=== PATIENT | female | born 1950 | race Caucasian/White ===

== ENCOUNTER 2022-12-22 17:43 | Inpatient (IN) | payer MEDICARE ==
[~2022-12-22] VITALS: Ht 160 cm; Wt 90.7 kg
[~2022-12-22 17:43] MED LIST: ONDANSETRON HCL INJ 2MG/ML 2ML 2 MG/ML VIAL ONE; POVIDONE IODINE 0.05% 0.05 % ML PO ONE; SEVOFLURANE INHAL SOLN 250 ML PEN BTL ONE
[2022-12-22 18:54] LABS: BASOPHILS # (AUTO) 0.1 (0.0-0.1); BASOPHILS % 0.5 % (0.0-1.0); EOSINOPHILS # (AUTO) 0.7 (0.0-0.4); EOSINOPHILS % 7.6 % (0.0-6.0); HEMATOCRIT 39.2 % (34.2-44.1); HEMOGLOBIN 12.3 g/dL (12.0-16.0); LYMPHOCYTES # (AUTO) 0.8 (1.0-3.2); LYMPHOCYTES % 8.3 % (18.0-39.1); MEAN CORPUSCULAR HEMOGLOBIN 30.1 pg (28-32); MEAN CORPUSCULAR HGB CONC 31.4 g/dL (31-35); MEAN CORPUSCULAR VOLUME 96.1 fL (81-99); MONOCYTES # (AUTO) 0.9 (0.2-0.8); MONOCYTES % 9.1 % (4.4-11.3); NEUTROPHILS # (AUTO) 7.2 (2.1-6.9); NEUTROPHILS % 74.2 % (38.7-80.0); PLATELET COUNT 229 x10e3/uL (140-360); RED BLOOD COUNT 4.08 x10e6/uL (3.6-5.1); RED CELL DISTRIBUTION WIDTH 14.8 % (11.7-14.4)
[2022-12-22 19:04] LABS: AMPHETAMINES SCREEN,URINE NEGATIVE (NEGATIVE); BENZODIAZEPINES SCREEN,URINE NEGATIVE (NEGATIVE); PHENCYCLIDINE SCREEN,URINE NEGATIVE (NEGATIVE)
[2022-12-22 19:17] LABS: ALBUMIN 3.7 g/dL (3.5-5.0); ALBUMIN/GLOBULIN RATIO 0.7 (0.8-2.0); ANION GAP 23.2 mmol/L (8-16); CALCIUM 9.3 mg/dL (8.4-10.2); CREATININE, SERUM 12.46 mg/dL (0.57-1.11); POTASSIUM 5.2 mmol/L (3.5-5.1)
[2022-12-22] MEDS ORDERED: FUROSEMIDE INJ 10 MG/ML 4 ML VIAL IV STA (19:28)
[2022-12-22] MEDS ORDERED: SODIUM BICARBONATE 8.4% INJ 50 ML SYR IV STA (19:59)
[2022-12-22] MEDS ORDERED: CALCIUM GLUCONATE 10% INJ 0.465 MEQ/ML VIAL IV STA (19:59)
[2022-12-22] MEDS ORDERED: DEXTROSE 50% SYRINGE 50 ML IV STA (19:59)
[2022-12-22] MEDS ORDERED: INSULIN REGULAR, HUMAN 100 UNIT/1 ML IV ONE (20:00)
[2022-12-22 20:28] VITALS: PULSE 99; RESP 20; O2SAT 100
[2022-12-22] MEDS ORDERED: CALCIUM GLUC 1 G/50 ML NACL 50 ML IV ONE (20:28)
[2022-12-22 22:02] VITALS: BP 149/75; PULSE 74; RESP 18; TEMP 98.1; O2SAT 96
[2022-12-23] VITALS (9 sets, daily range): BP systolic 104–160; BP diastolic 61–83; PULSE 72–96; RESP 16–22; TEMP 97.1–98.3; O2SAT 96–98
[2022-12-23] MEDS: Morphine 4mg INJECTION 4 MG/ML INJ IV PRN (01:00)
[2022-12-23] MEDS: ONDANSETRON HCL INJ 2MG/ML 2ML 2 MG/ML VIAL IV PRN ×2 (01:00→05:20)
[2022-12-23] MEDS ORDERED: SODIUM CHLORIDE 0.9% 250ML 250 ML ONE (04:20)
[2022-12-23 07:16] LABS: BASOPHILS # (AUTO) 0.1 (0.0-0.1); BASOPHILS % 0.6 % (0.0-1.0); EOSINOPHILS # (AUTO) 0.8 (0.0-0.4); EOSINOPHILS % 8.9 % (0.0-6.0); HEMATOCRIT 35.5 % (34.2-44.1); HEMOGLOBIN 10.8 g/dL (12.0-16.0); LYMPHOCYTES # (AUTO) 0.9 (1.0-3.2); LYMPHOCYTES % 9.7 % (18.0-39.1); MEAN CORPUSCULAR HEMOGLOBIN 29.8 pg (28-32); MEAN CORPUSCULAR HGB CONC 30.4 g/dL (31-35); MEAN CORPUSCULAR VOLUME 98.1 fL (81-99); MONOCYTES # (AUTO) 0.9 (0.2-0.8); MONOCYTES % 10.2 % (4.4-11.3); NEUTROPHILS # (AUTO) 6.3 (2.1-6.9); NEUTROPHILS % 70.2 % (38.7-80.0); PLATELET COUNT 200 x10e3/uL (140-360); RED BLOOD COUNT 3.62 x10e6/uL (3.6-5.1); RED CELL DISTRIBUTION WIDTH 14.9 % (11.7-14.4)
[2022-12-23 07:36] LABS: ALBUMIN 3.2 g/dL (3.5-5.0); ALBUMIN/GLOBULIN RATIO 0.7 (0.8-2.0); ANION GAP 20.4 mmol/L (8-16); POTASSIUM 5.4 mmol/L (3.5-5.1)
[2022-12-23] MEDS ORDERED: FUROSEMIDE INJ 10 MG/ML 4 ML VIAL IV SCH (08:15)
[2022-12-23] MEDS ORDERED: PROMETHAZINE 12.5MG/ NACL 0.9% 12.5 MG/50 ML BAG IV PRN (08:15)
[2022-12-23] MEDS ORDERED: HYDRALAZINE HCL 20 MG/ML VIAL IV PRN (08:15)
[2022-12-23] MEDS: HEPARIN SOD (PORCINE) 5,000 UNIT/ML VIAL SC SCH ×2 (09:51→22:47)
[2022-12-23] MEDS: FUROSEMIDE INJ 10 MG/ML 4 ML VIAL IV SCH ×2 (16:51→22:41)
[2022-12-23] MEDS: NYSTATIN 15 GM POWDER UD BTL TOP SCH (16:51)
[2022-12-23] MEDS ORDERED: SOD POLYSTYRENE SULFONATE SUSP 15 GM/60 ML BTL PO ONE (18:00)
[2022-12-23] MEDS: SODIUM BICARBONATE 650 MG TAB PO SCH (18:37)
[2022-12-23 21:27] LABS: CLARITY,URINE HAZY (CLEAR); COLOR,URINE YELLOW (YELLOW); KETONES,URINE NEGATIVE (NEGATIVE); LEUKOCYTE ESTERASE ,URINE MODERATE (NEGATIVE); NITRITE,URINE NEGATIVE (NEGATIVE); PROTEIN,URINE DIPSTICK 2+ (NEGATIVE)
[2022-12-23 21:28] LABS: URINE UROBILINOGEN 0.2 mg/dL (0.2 - 1)
[2022-12-23 21:39] LABS: BACTERIA,URINE MODERATE /HPF; EPITHELIAL CELLS,URINE FEW /LPF; WBC,URINE (MAN) 21-50 /HPF (0-5)
[2022-12-24] VITALS (8 sets, daily range): BP systolic 127–180; BP diastolic 67–98; PULSE 77–102; RESP 18–21; TEMP 97.7–98.5; O2SAT 95–99
[2022-12-24 04:58] LABS: BASOPHILS % 0.6 % (0.0-1.0); EOSINOPHILS # (AUTO) 0.5 (0.0-0.4); EOSINOPHILS % 6.6 % (0.0-6.0); HEMATOCRIT 31.3 % (34.2-44.1); HEMOGLOBIN 9.7 g/dL (12.0-16.0); LYMPHOCYTES # (AUTO) 0.5 (1.0-3.2); LYMPHOCYTES % 7.4 % (18.0-39.1); MEAN CORPUSCULAR HEMOGLOBIN 29.9 pg (28-32); MEAN CORPUSCULAR VOLUME 96.6 fL (81-99); MONOCYTES # (AUTO) 0.7 (0.2-0.8); MONOCYTES % 9.7 % (4.4-11.3); NEUTROPHILS # (AUTO) 5.5 (2.1-6.9); NEUTROPHILS % 75.3 % (38.7-80.0); PLATELET COUNT 159 x10e3/uL (140-360); RED BLOOD COUNT 3.24 x10e6/uL (3.6-5.1); RED CELL DISTRIBUTION WIDTH 14.9 % (11.7-14.4)
[2022-12-24 05:26] LABS: ANION GAP 19.9 mmol/L (8-16); CALCIUM 8.6 mg/dL (8.4-10.2); CREATININE, SERUM 13.16 mg/dL (0.57-1.11); POTASSIUM 4.9 mmol/L (3.5-5.1)
[2022-12-24] MEDS: FUROSEMIDE INJ 10 MG/ML 4 ML VIAL IV SCH ×3 (05:27→21:07)
[2022-12-24 05:55] LABS: MAGNESIUM 1.5 MG/DL (1.3-2.1); PHOSPHORUS 8.5 MG/DL (2.3-4.7)
[2022-12-24 06:10] LABS: THYROID STIMULATING HORMONE 1.106 uIU/mL (0.350-4.940)
[2022-12-24] MEDS: SODIUM BICARBONATE 650 MG TAB PO SCH ×2 (09:04→17:14)
[2022-12-24] MEDS: METOPROLOL TARTRATE 25 MG TAB PO SCH (09:06)
[2022-12-24] MEDS: MUPIROCIN 2% OINT 22 GM TUBE TOP SCH (09:07)
[2022-12-24] MEDS: NYSTATIN 15 GM POWDER UD BTL TOP SCH ×2 (09:07→17:15)
[2022-12-24] MEDS: HEPARIN SOD (PORCINE) 5,000 UNIT/ML VIAL SC SCH ×2 (09:32→20:09)
[2022-12-24 10:33] LABS: INR 1.14; PROTHROMBIN TIME 15.1 seconds (11.9-14.5)
[2022-12-24] MEDS: Morphine 4mg INJECTION 4 MG/ML INJ IV PRN (12:25)
[2022-12-24] MEDS ORDERED: IOPAMIDOL 370 MG/ML 100 ML INFUS..BTL INJ ONE (13:45)
[2022-12-24] MEDS ORDERED: LIDOCAINE HCL 1% LOCAL INJ 20 ML VIAL ONE (13:45)
[2022-12-24] MEDS ORDERED: SODIUM CHLORIDE 0.9% 500ML 0 ML ONE (13:46)
[2022-12-24] MEDS ORDERED: MAGNESIUM SULFATE 2GM/50ML 100 ML IV ONE (17:00)
[2022-12-24] MEDS ORDERED: MAGNESIUM SULFATE 2GM/50ML 50 ML IV ONE (17:45)
[2022-12-24] MEDS ORDERED: MAGNESIUM SULF 1GRAM/DEXTROSE 100 ML IV ONE (20:00)
[2022-12-25] VITALS (8 sets, daily range): BP systolic 120–162; BP diastolic 54–86; PULSE 83–91; RESP 19–24; TEMP 97.4–98.6; O2SAT 95–100
[2022-12-25] MEDS: FUROSEMIDE INJ 10 MG/ML 4 ML VIAL IV SCH ×3 (05:02→21:37)
[2022-12-25 06:09] LABS: ANION GAP 25.4 mmol/L (8-16); CREATININE, SERUM 13.87 mg/dL (0.57-1.11); MAGNESIUM 2.6 MG/DL (1.3-2.1); POTASSIUM 5.4 mmol/L (3.5-5.1)
[2022-12-25] MEDS ORDERED: LIDOCAINE HCL 1% LOCAL INJ 20 ML VIAL ONE (07:13)
[2022-12-25] MEDS ORDERED: SODIUM CHLORIDE 0.9% 250ML 250 ML ONE ×2 (07:13→09:20)
[2022-12-25] MEDS ORDERED: IOPAMIDOL 370 MG/ML 100 ML INFUS..BTL INJ ONE (07:13)
[2022-12-25] MEDS: METOPROLOL TARTRATE 25 MG TAB PO SCH (08:24)
[2022-12-25] MEDS: SODIUM BICARBONATE 650 MG TAB PO SCH ×2 (08:24→16:28)
[2022-12-25] MEDS: HEPARIN SOD (PORCINE) 5,000 UNIT/ML VIAL SC SCH ×2 (08:24→21:52)
[2022-12-25] MEDS: NYSTATIN 15 GM POWDER UD BTL TOP SCH ×2 (08:24→16:29)
[2022-12-25] MEDS: MUPIROCIN 2% OINT 22 GM TUBE TOP SCH (08:24)
[2022-12-25] MEDS ORDERED: CEFTRIAXONE 1 GM VIAL ONE (09:20)
[2022-12-25] MEDS ORDERED: FENTANYL CITRATE/PF 100MCG/2 ML INJ ONE (09:20)
[2022-12-25] MEDS ORDERED: MIDAZOLAM HCL 2 MG/2 ML VIAL ONE (09:20)
[2022-12-25 17:35] LABS: CREATININE,URINE RANDOM 61.34 mg/dL (47-110); TOTAL PROTEIN, URINE 65.5 mg/dL (1-14)
[2022-12-25] MEDS ORDERED: SOD POLYSTYRENE SULFONATE SUSP 15 GM/60 ML BTL PO ONE (19:05)
[2022-12-26] VITALS (8 sets, daily range): BP systolic 125–157; BP diastolic 63–87; PULSE 84–92; RESP 16–20; TEMP 97.2–99.2; O2SAT 94–100
[2022-12-26] MEDS: FUROSEMIDE INJ 10 MG/ML 4 ML VIAL IV SCH ×3 (06:12→21:16)
[2022-12-26 06:20] LABS: CALCIUM 8.5 mg/dL (8.4-10.2); CREATININE, SERUM 12.53 mg/dL (0.57-1.11)
[2022-12-26] MEDS: HEPARIN SOD (PORCINE) 5,000 UNIT/ML VIAL SC SCH (09:00)
[2022-12-26] MEDS: METOPROLOL TARTRATE 25 MG TAB PO SCH (09:34)
[2022-12-26] MEDS: SODIUM BICARBONATE 650 MG TAB PO SCH ×2 (09:35→17:22)
[2022-12-26] MEDS: MUPIROCIN 2% OINT 22 GM TUBE TOP SCH (09:35)
[2022-12-26] MEDS: NYSTATIN 15 GM POWDER UD BTL TOP SCH ×2 (09:35→17:22)
[2022-12-26] MEDS ORDERED: ONDANSETRON HCL 4 MG ORAL DISINTEGRATING TAB PO PRN (10:30)
[2022-12-27] VITALS (7 sets, daily range): BP systolic 121–146; BP diastolic 58–82; PULSE 82–97; RESP 16–20; TEMP 97–98.6; O2SAT 94–100
[2022-12-27 06:05] LABS: ANION GAP 23.4 mmol/L (8-16); CALCIUM 8.4 mg/dL (8.4-10.2); CREATININE, SERUM 10.65 mg/dL (0.57-1.11); MAGNESIUM 1.9 MG/DL (1.3-2.1); POTASSIUM 3.4 mmol/L (3.5-5.1)
[2022-12-27] MEDS: FUROSEMIDE INJ 10 MG/ML 4 ML VIAL IV SCH ×2 (06:09→13:59)
[2022-12-27] MEDS: SODIUM BICARBONATE 650 MG TAB PO SCH ×2 (09:52→17:06)
[2022-12-27] MEDS: PANTOPRAZOLE SOD 40 MG TABEC PO SCH (09:52)
[2022-12-27] MEDS: METOPROLOL TARTRATE 25 MG TAB PO SCH (09:53)
[2022-12-27] MEDS: NYSTATIN 15 GM POWDER UD BTL TOP SCH ×2 (09:54→17:00)
[2022-12-27] MEDS: MUPIROCIN 2% OINT 22 GM TUBE TOP SCH (09:54)
[2022-12-27] MEDS: Morphine 4mg INJECTION 4 MG/ML INJ IV PRN (13:59)
[2022-12-27 15:14] LABS: ALPHA 2 GLOBULIN URINE PEP 6.8 % (.)
[2022-12-27] MEDS ORDERED: POTASSIUM CHLORIDE 20 MEQ TAB CR PO ONE (18:35)
[2022-12-27] MEDS: FUROSEMIDE 40 MG TAB PO SCH (20:27)
[2022-12-28 00:06] VITALS: BP 131/69; PULSE 84; RESP 18; TEMP 98; O2SAT 94
[2022-12-28 05:06] VITALS: BP 137/66; PULSE 80; RESP 18; TEMP 97.8; O2SAT 95
[2022-12-28 08:05] LABS: ANION GAP 21.9 mmol/L (8-16); CALCIUM 8.2 mg/dL (8.4-10.2); CREATININE, SERUM 8.31 mg/dL (0.57-1.11)
[2022-12-28 08:29] LABS: POTASSIUM 2.9 mmol/L (3.5-5.1)
[2022-12-28 08:54] VITALS: BP 149/77; PULSE 89; RESP 16; TEMP 98.2; O2SAT 97
[2022-12-28] MEDS: SODIUM BICARBONATE 650 MG TAB PO SCH (09:47)
[2022-12-28] MEDS: PANTOPRAZOLE SOD 40 MG TABEC PO SCH (09:48)
[2022-12-28] MEDS: METOPROLOL TARTRATE 25 MG TAB PO SCH (09:48)
[2022-12-28] MEDS: FUROSEMIDE 40 MG TAB PO SCH ×2 (09:48→17:27)
[2022-12-28] MEDS: POTASSIUM CHLORIDE 20 MEQ TAB CR PO SCH (09:48)
[2022-12-28] MEDS: MUPIROCIN 2% OINT 22 GM TUBE TOP SCH (09:50)
[2022-12-28] MEDS: NYSTATIN 15 GM POWDER UD BTL TOP SCH ×2 (09:50→17:26)
[2022-12-28] MEDS ORDERED: POTASSIUM CHLORIDE 10MEQ EA PO ONE (11:00)
[2022-12-28 12:48] VITALS: BP 142/67; PULSE 82; RESP 19; TEMP 97.7; O2SAT 98
[2022-12-28 17:16] VITALS: BP 147/72; PULSE 84; RESP 21; TEMP 97.6; O2SAT 96
[2022-12-28 20:00] VITALS: BP 127/62; PULSE 84; RESP 17; TEMP 97.4; O2SAT 94
[2022-12-28] MEDS: ACETAMINOPHEN 325 MG TAB PO PRN (22:45)
[2022-12-29] VITALS (7 sets, daily range): BP systolic 131–155; BP diastolic 60–85; PULSE 81–91; RESP 16–22; TEMP 97.5–98.4; O2SAT 94–98
[2022-12-29 06:02] LABS: BASOPHILS # (AUTO) 0.1 (0.0-0.1); BASOPHILS % 0.5 % (0.0-1.0); EOSINOPHILS # (AUTO) 0.6 (0.0-0.4); EOSINOPHILS % 5.4 % (0.0-6.0); HEMATOCRIT 32.9 % (34.2-44.1); HEMOGLOBIN 10.5 g/dL (12.0-16.0); LYMPHOCYTES # (AUTO) 0.8 (1.0-3.2); MEAN CORPUSCULAR HEMOGLOBIN 29.9 pg (28-32); MEAN CORPUSCULAR HGB CONC 31.9 g/dL (31-35); MEAN CORPUSCULAR VOLUME 93.7 fL (81-99); MONOCYTES # (AUTO) 1.1 (0.2-0.8); MONOCYTES % 10.7 % (4.4-11.3); NEUTROPHILS # (AUTO) 7.8 (2.1-6.9); NEUTROPHILS % 74.9 % (38.7-80.0); PLATELET COUNT 188 x10e3/uL (140-360); RED BLOOD COUNT 3.51 x10e6/uL (3.6-5.1); RED CELL DISTRIBUTION WIDTH 15.1 % (11.7-14.4)
[2022-12-29 06:27] LABS: ANION GAP 19.7 mmol/L (8-16); CALCIUM 7.9 mg/dL (8.4-10.2); CREATININE, SERUM 6.5 mg/dL (0.57-1.11)
[2022-12-29 06:39] LABS: POTASSIUM 2.7 mmol/L (3.5-5.1)
[2022-12-29 06:59] LABS: MAGNESIUM 1.3 MG/DL (1.3-2.1)
[2022-12-29] MEDS: PANTOPRAZOLE SOD 40 MG TABEC PO SCH (08:15)
[2022-12-29] MEDS: NYSTATIN 15 GM POWDER UD BTL TOP SCH ×2 (09:00→15:56)
[2022-12-29] MEDS: FUROSEMIDE 40 MG TAB PO SCH ×2 (09:14→16:14)
[2022-12-29] MEDS: SODIUM BICARBONATE 650 MG TAB PO SCH (09:14)
[2022-12-29] MEDS: POTASSIUM CHLORIDE 20 MEQ TAB CR PO SCH ×3 (09:14→21:12)
[2022-12-29] MEDS: MUPIROCIN 2% OINT 22 GM TUBE TOP SCH (09:15)
[2022-12-29] MEDS: METOPROLOL TARTRATE 25 MG TAB PO SCH (09:15)
[2022-12-29] MEDS ORDERED: SODIUM CHLORIDE 0.9% 250ML 250 ML ONE (14:27)
[2022-12-29] MEDS ORDERED: MAGNESIUM SULFATE 2GM/50ML 50 ML IV ONE (14:30)
[2022-12-30] VITALS (7 sets, daily range): BP systolic 125–149; BP diastolic 59–88; PULSE 80–89; RESP 17–20; TEMP 97.5–99.3; O2SAT 95–100
[2022-12-30] MEDS ORDERED: POTASSIUM CHLORIDE 20 MEQ TAB CR PO SCH (05:00)
[2022-12-30 05:58] LABS: BASOPHILS # (AUTO) 0.1 (0.0-0.1); BASOPHILS % 0.5 % (0.0-1.0); EOSINOPHILS # (AUTO) 0.5 (0.0-0.4); EOSINOPHILS % 5.5 % (0.0-6.0); HEMATOCRIT 32.4 % (34.2-44.1); HEMOGLOBIN 10.2 g/dL (12.0-16.0); LYMPHOCYTES # (AUTO) 0.9 (1.0-3.2); LYMPHOCYTES % 9.3 % (18.0-39.1); MEAN CORPUSCULAR HEMOGLOBIN 29.9 pg (28-32); MEAN CORPUSCULAR HGB CONC 31.5 g/dL (31-35); MONOCYTES % 9.8 % (4.4-11.3); NEUTROPHILS # (AUTO) 7.3 (2.1-6.9); NEUTROPHILS % 74.5 % (38.7-80.0); PLATELET COUNT 171 x10e3/uL (140-360); RED BLOOD COUNT 3.41 x10e6/uL (3.6-5.1); RED CELL DISTRIBUTION WIDTH 15.3 % (11.7-14.4)
[2022-12-30] MEDS: PANTOPRAZOLE SOD 40 MG TABEC PO SCH (08:30)
[2022-12-30] MEDS: NYSTATIN 15 GM POWDER UD BTL TOP SCH (09:00)
[2022-12-30] MEDS: POTASSIUM CHLORIDE 20 MEQ TAB CR PO SCH ×3 (09:53→20:12)
[2022-12-30] MEDS: SODIUM BICARBONATE 650 MG TAB PO SCH (09:54)
[2022-12-30] MEDS: FUROSEMIDE 40 MG TAB PO SCH ×2 (09:54→16:37)
[2022-12-30] MEDS: METOPROLOL TARTRATE 25 MG TAB PO SCH (09:54)
[2022-12-30] MEDS: MAGNESIUM OXIDE 400 MG TAB PO SCH ×2 (09:54→16:37)
[2022-12-30] MEDS: MUPIROCIN 2% OINT 22 GM TUBE TOP SCH (09:55)
[2022-12-30 10:17] LABS: ANION GAP 18.8 mmol/L (8-16); CALCIUM 7.9 mg/dL (8.4-10.2); CREATININE, SERUM 4.85 mg/dL (0.57-1.11)
[2022-12-30 10:20] LABS: POTASSIUM 2.8 mmol/L (3.5-5.1)
[2022-12-30] MEDS: POTASSIUM CHLORIDE 20MEQ/100ML 100 ML IV SCH ×2 (10:30→13:52)
[2022-12-30] MEDS: ACETAMINOPHEN 325 MG TAB PO PRN (20:12)
[2022-12-31] VITALS (8 sets, daily range): BP systolic 130–146; BP diastolic 64–79; PULSE 83–94; RESP 17–20; TEMP 97–99; O2SAT 95–98
[2022-12-31] MEDS: ACETAMINOPHEN 325 MG TAB PO PRN ×2 (02:28→20:56)
[2022-12-31 06:02] LABS: BASOPHILS # (AUTO) 0.1 (0.0-0.1); BASOPHILS % 0.6 % (0.0-1.0); EOSINOPHILS # (AUTO) 0.5 (0.0-0.4); EOSINOPHILS % 6.8 % (0.0-6.0); HEMATOCRIT 32.6 % (34.2-44.1); HEMOGLOBIN 10.2 g/dL (12.0-16.0); LYMPHOCYTES # (AUTO) 0.7 (1.0-3.2); LYMPHOCYTES % 9.1 % (18.0-39.1); MEAN CORPUSCULAR HEMOGLOBIN 29.8 pg (28-32); MEAN CORPUSCULAR HGB CONC 31.3 g/dL (31-35); MEAN CORPUSCULAR VOLUME 95.3 fL (81-99); MONOCYTES # (AUTO) 0.8 (0.2-0.8); MONOCYTES % 9.6 % (4.4-11.3); NEUTROPHILS # (AUTO) 5.8 (2.1-6.9); NEUTROPHILS % 73.5 % (38.7-80.0); PLATELET COUNT 172 x10e3/uL (140-360); RED BLOOD COUNT 3.42 x10e6/uL (3.6-5.1); RED CELL DISTRIBUTION WIDTH 15.5 % (11.7-14.4)
[2022-12-31 06:32] LABS: MAGNESIUM 1.5 MG/DL (1.3-2.1)
[2022-12-31 06:52] LABS: PHOSPHORUS 4.2 MG/DL (2.3-4.7)
[2022-12-31 06:58] LABS: CALCIUM 8.2 mg/dL (8.4-10.2); CREATININE, SERUM 3.86 mg/dL (0.57-1.11)
[2022-12-31] MEDS: PANTOPRAZOLE SOD 40 MG TABEC PO SCH (08:30)
[2022-12-31] MEDS ORDERED: POTASSIUM CHLORIDE 10MEQ EA PO ONE (09:30)
[2022-12-31] MEDS: SODIUM BICARBONATE 650 MG TAB PO SCH (09:36)
[2022-12-31] MEDS: POTASSIUM CHLORIDE 20 MEQ TAB CR PO SCH ×3 (09:37→20:45)
[2022-12-31] MEDS: METOPROLOL TARTRATE 25 MG TAB PO SCH (09:37)
[2022-12-31] MEDS: MAGNESIUM OXIDE 400 MG TAB PO SCH ×2 (09:38→16:11)
[2022-12-31] MEDS: FUROSEMIDE 40 MG TAB PO SCH ×2 (09:39→16:11)
[2022-12-31] MEDS: MAGNESIUM SULFATE 2GM/50ML 50 ML IV SCH ×2 (09:41→12:31)
[2022-12-31] MEDS ORDERED: MAGNESIUM SULFATE 2GM/50ML IV SCH (10:00)
[2023-01-01] VITALS (8 sets, daily range): BP systolic 123–145; BP diastolic 61–79; PULSE 79–106; RESP 16–22; TEMP 97.4–99.4; O2SAT 97–98
[2023-01-01 06:10] LABS: BASOPHILS # (AUTO) 0.1 (0.0-0.1); BASOPHILS % 0.6 % (0.0-1.0); EOSINOPHILS # (AUTO) 0.6 (0.0-0.4); EOSINOPHILS % 7.6 % (0.0-6.0); HEMATOCRIT 35.3 % (34.2-44.1); HEMOGLOBIN 10.7 g/dL (12.0-16.0); LYMPHOCYTES # (AUTO) 1.1 (1.0-3.2); LYMPHOCYTES % 13.2 % (18.0-39.1); MEAN CORPUSCULAR HEMOGLOBIN 29.5 pg (28-32); MEAN CORPUSCULAR HGB CONC 30.3 g/dL (31-35); MEAN CORPUSCULAR VOLUME 97.2 fL (81-99); MONOCYTES # (AUTO) 1.2 (0.2-0.8); MONOCYTES % 14.6 % (4.4-11.3); NEUTROPHILS # (AUTO) 5.3 (2.1-6.9); NEUTROPHILS % 63.6 % (38.7-80.0); PLATELET COUNT 217 x10e3/uL (140-360); RED BLOOD COUNT 3.63 x10e6/uL (3.6-5.1); RED CELL DISTRIBUTION WIDTH 15.2 % (11.7-14.4)
[2023-01-01 06:25] LABS: ANION GAP 18.2 mmol/L (8-16); CALCIUM 9.2 mg/dL (8.4-10.2); CREATININE, SERUM 3.11 mg/dL (0.57-1.11); POTASSIUM 4.2 mmol/L (3.5-5.1)
[2023-01-01] MEDS: PANTOPRAZOLE SOD 40 MG TABEC PO SCH (07:30)
[2023-01-01] MEDS: MAGNESIUM OXIDE 400 MG TAB PO SCH ×2 (09:00→17:02)
[2023-01-01] MEDS: SODIUM BICARBONATE 650 MG TAB PO SCH (09:00)
[2023-01-01] MEDS: METOPROLOL TARTRATE 25 MG TAB PO SCH (09:00)
[2023-01-01] MEDS: POTASSIUM CHLORIDE 20 MEQ TAB CR PO SCH ×3 (09:00→21:22)
[2023-01-01] MEDS: FUROSEMIDE 40 MG TAB PO SCH ×2 (09:00→17:02)
[2023-01-01] MEDS ORDERED: IOPAMIDOL 610MG/1ML 300 MG/ML VIAL IV ONE (12:12)
[2023-01-01] MEDS ORDERED: DEXAMETHASONE SOD PHOS 10 MG/1 ML VIAL ONE (13:35)
[2023-01-01] MEDS ORDERED: FENTANYL CITRATE/PF 100MCG/2 ML INJ ONE ×2 (13:50→13:56)
[2023-01-01] MEDS: FENTANYL CITRATE/PF 100MCG/2 ML INJ ONE ×4 (14:15→14:30)
[2023-01-01] MEDS ORDERED: HYDRALAZINE HCL 20 MG/ML VIAL ONE (14:30)
[2023-01-01] MEDS ORDERED: HYDROMORPHONE 1MG/1ML INJ ONE (14:39)
[2023-01-01] MEDS: ACETAMINOPHEN 325 MG TAB PO PRN (17:01)
[2023-01-02] VITALS (8 sets, daily range): BP systolic 124–138; BP diastolic 62–68; PULSE 84–93; RESP 18–20; TEMP 98.1–99.5; O2SAT 94–98
[2023-01-02] MEDS: ACETAMINOPHEN 325 MG TAB PO PRN ×3 (00:42→12:40)
[2023-01-02 05:46] LABS: BASOPHILS % 0.2 % (0.0-1.0); HEMATOCRIT 34.6 % (34.2-44.1); HEMOGLOBIN 10.6 g/dL (12.0-16.0); LYMPHOCYTES # (AUTO) 0.6 (1.0-3.2); LYMPHOCYTES % 5.8 % (18.0-39.1); MEAN CORPUSCULAR HEMOGLOBIN 29.9 pg (28-32); MEAN CORPUSCULAR HGB CONC 30.6 g/dL (31-35); MEAN CORPUSCULAR VOLUME 97.5 fL (81-99); MONOCYTES # (AUTO) 0.3 (0.2-0.8); MONOCYTES % 2.9 % (4.4-11.3); NEUTROPHILS # (AUTO) 9.1 (2.1-6.9); NEUTROPHILS % 90.6 % (38.7-80.0); PLATELET COUNT 223 x10e3/uL (140-360); RED BLOOD COUNT 3.55 x10e6/uL (3.6-5.1); RED CELL DISTRIBUTION WIDTH 15.1 % (11.7-14.4)
[2023-01-02 06:12] LABS: ANION GAP 18.6 mmol/L (8-16); CALCIUM 9.4 mg/dL (8.4-10.2); CREATININE, SERUM 3.39 mg/dL (0.57-1.11); POTASSIUM 5.6 mmol/L (3.5-5.1)
[2023-01-02] MEDS: PANTOPRAZOLE SOD 40 MG TABEC PO SCH (08:30)
[2023-01-02] MEDS: SODIUM BICARBONATE 650 MG TAB PO SCH (09:08)
[2023-01-02] MEDS: FUROSEMIDE 40 MG TAB PO SCH ×2 (09:08→17:21)
[2023-01-02] MEDS: MAGNESIUM OXIDE 400 MG TAB PO SCH ×2 (09:08→17:21)
[2023-01-02] MEDS: METOPROLOL TARTRATE 25 MG TAB PO SCH (09:09)
[2023-01-02] MEDS: PHENAZOPYRIDINE HCL 100 MG TAB PO PRN ×2 (12:40→17:21)
[2023-01-02] MEDS ORDERED: SODIUM CHLORIDE 0.9% 1000ML 1,000 ML IV SCH (18:30)
[2023-01-02] MEDS: SODIUM CHLORIDE 0.9% 1000ML 1,000 ML IV SCH (21:39)
[2023-01-03] VITALS (7 sets, daily range): BP systolic 113–144; BP diastolic 61–81; PULSE 85–91; RESP 18–24; TEMP 97.5–98.9; O2SAT 95–98
[2023-01-03] MEDS: PHENAZOPYRIDINE HCL 100 MG TAB PO PRN ×3 (00:04→20:26)
[2023-01-03] MEDS: ACETAMINOPHEN 325 MG TAB PO PRN ×4 (00:04→19:46)
[2023-01-03 05:46] LABS: BASOPHILS # (AUTO) 0.1 (0.0-0.1); BASOPHILS % 0.3 % (0.0-1.0); EOSINOPHILS # (AUTO) 0.1 (0.0-0.4); EOSINOPHILS % 0.9 % (0.0-6.0); HEMATOCRIT 35.2 % (34.2-44.1); HEMOGLOBIN 10.9 g/dL (12.0-16.0); LYMPHOCYTES # (AUTO) 1.2 (1.0-3.2); LYMPHOCYTES % 8.5 % (18.0-39.1); MONOCYTES # (AUTO) 1.3 (0.2-0.8); MONOCYTES % 9.1 % (4.4-11.3); NEUTROPHILS # (AUTO) 11.7 (2.1-6.9); NEUTROPHILS % 80.8 % (38.7-80.0); PLATELET COUNT 250 x10e3/uL (140-360); RED BLOOD COUNT 3.63 x10e6/uL (3.6-5.1); RED CELL DISTRIBUTION WIDTH 15.3 % (11.7-14.4)
[2023-01-03] MEDS: SODIUM CHLORIDE 0.9% 1000ML 1,000 ML IV SCH ×2 (05:58→16:00)
[2023-01-03 06:08] LABS: ANION GAP 16.8 mmol/L (8-16); CALCIUM 9.2 mg/dL (8.4-10.2); CREATININE, SERUM 2.74 mg/dL (0.57-1.11); POTASSIUM 4.8 mmol/L (3.5-5.1)
[2023-01-03] MEDS: PANTOPRAZOLE SOD 40 MG TABEC PO SCH (08:30)
[2023-01-03] MEDS: MAGNESIUM OXIDE 400 MG TAB PO SCH ×2 (09:28→17:26)
[2023-01-03] MEDS: SODIUM BICARBONATE 650 MG TAB PO SCH (09:28)
[2023-01-03] MEDS: METOPROLOL TARTRATE 25 MG TAB PO SCH (09:29)
[2023-01-04] VITALS (7 sets, daily range): BP systolic 130–144; BP diastolic 71–84; PULSE 86–110; RESP 18–20; TEMP 97.9–98.6; O2SAT 95–97
[2023-01-04] MEDS: PHENAZOPYRIDINE HCL 100 MG TAB PO PRN ×3 (00:59→16:12)
[2023-01-04] MEDS: SODIUM CHLORIDE 0.9% 1000ML 1,000 ML IV SCH ×3 (02:00→22:00)
[2023-01-04] MEDS: ACETAMINOPHEN 325 MG TAB PO PRN ×4 (03:06→20:48)
[2023-01-04 06:38] LABS: ANION GAP 14.5 mmol/L (8-16); CALCIUM 8.9 mg/dL (8.4-10.2); CREATININE, SERUM 2.07 mg/dL (0.57-1.11); POTASSIUM 4.5 mmol/L (3.5-5.1)
[2023-01-04] MEDS: MAGNESIUM OXIDE 400 MG TAB PO SCH (09:00)
[2023-01-04] MEDS: METOPROLOL TARTRATE 25 MG TAB PO SCH (09:10)
[2023-01-04] MEDS: SODIUM BICARBONATE 650 MG TAB PO SCH (09:10)
[2023-01-04] MEDS: PANTOPRAZOLE SOD 40 MG TABEC PO SCH (09:10)
[2023-01-05] VITALS (7 sets, daily range): BP systolic 120–154; BP diastolic 63–97; PULSE 84–96; RESP 18–20; TEMP 98.1–99.8; O2SAT 95–99
[2023-01-05] MEDS: ACETAMINOPHEN 325 MG TAB PO PRN ×3 (04:13→20:46)
[2023-01-05 05:56] LABS: BASOPHILS # (AUTO) 0.1 (0.0-0.1); BASOPHILS % 0.6 % (0.0-1.0); EOSINOPHILS # (AUTO) 0.5 (0.0-0.4); EOSINOPHILS % 6.1 % (0.0-6.0); HEMATOCRIT 34.4 % (34.2-44.1); HEMOGLOBIN 10.9 g/dL (12.0-16.0); LYMPHOCYTES # (AUTO) 0.9 (1.0-3.2); LYMPHOCYTES % 11.5 % (18.0-39.1); MEAN CORPUSCULAR HEMOGLOBIN 29.6 pg (28-32); MEAN CORPUSCULAR HGB CONC 31.7 g/dL (31-35); MEAN CORPUSCULAR VOLUME 93.5 fL (81-99); MONOCYTES # (AUTO) 1.1 (0.2-0.8); MONOCYTES % 13.5 % (4.4-11.3); NEUTROPHILS # (AUTO) 5.5 (2.1-6.9); NEUTROPHILS % 67.9 % (38.7-80.0); PLATELET COUNT 236 x10e3/uL (140-360); RED BLOOD COUNT 3.68 x10e6/uL (3.6-5.1); RED CELL DISTRIBUTION WIDTH 14.7 % (11.7-14.4)
[2023-01-05 06:13] LABS: ANION GAP 13.3 mmol/L (8-16); CALCIUM 9.3 mg/dL (8.4-10.2); CREATININE, SERUM 1.96 mg/dL (0.57-1.11); POTASSIUM 4.3 mmol/L (3.5-5.1)
[2023-01-05] MEDS: SODIUM CHLORIDE 0.9% 1000ML 1,000 ML IV SCH (08:00)
[2023-01-05] MEDS: SODIUM BICARBONATE 650 MG TAB PO SCH (09:37)
[2023-01-05] MEDS: PANTOPRAZOLE SOD 40 MG TABEC PO SCH (09:37)
[2023-01-05] MEDS: METOPROLOL TARTRATE 25 MG TAB PO SCH (09:38)
[2023-01-05] MEDS: PHENAZOPYRIDINE HCL 100 MG TAB PO PRN (13:17)
[2023-01-05 17:52] LABS: CALCIUM 9.5 mg/dL (8.4-10.2); CREATININE, SERUM 2.1 mg/dL (0.57-1.11)
[2023-01-05 17:59] LABS: MAGNESIUM 1.3 MG/DL (1.3-2.1)
[2023-01-05] MEDS ORDERED: MAGNESIUM SULFATE 2GM/50ML 50 ML IV ONE (18:15)
[2023-01-05] MEDS ORDERED: FUROSEMIDE INJ 10 MG/ML 4 ML VIAL IV ONE (18:15)
[2023-01-06] VITALS (8 sets, daily range): BP systolic 112–151; BP diastolic 72–81; PULSE 77–92; RESP 20–22; TEMP 98–98.7; O2SAT 96–100
[2023-01-06] MEDS: ACETAMINOPHEN 325 MG TAB PO PRN ×3 (03:33→19:28)
[2023-01-06] MEDS: PANTOPRAZOLE SOD 40 MG TABEC PO SCH (08:32)
[2023-01-06] MEDS: SODIUM BICARBONATE 650 MG TAB PO SCH (08:32)
[2023-01-06] MEDS: METOPROLOL TARTRATE 25 MG TAB PO SCH (08:33)
[2023-01-07 00:18] VITALS: BP 118/69; PULSE 87; RESP 22; TEMP 98.7; O2SAT 98
[2023-01-07] MEDS: ACETAMINOPHEN 325 MG TAB PO PRN ×3 (01:45→13:48)
[2023-01-07 04:51] VITALS: BP 138/68; PULSE 95; RESP 19; TEMP 98.5; O2SAT 96
[2023-01-07 05:37] LABS: ANION GAP 15.4 mmol/L (8-16); CALCIUM 9.5 mg/dL (8.4-10.2); CREATININE, SERUM 2.27 mg/dL (0.57-1.11); POTASSIUM 4.4 mmol/L (3.5-5.1)
[2023-01-07 08:08] VITALS: BP 112/74; PULSE 99; RESP 22; TEMP 98.1; O2SAT 100
[2023-01-07] MEDS: PANTOPRAZOLE SOD 40 MG TABEC PO SCH (08:30)
[2023-01-07] MEDS: SODIUM BICARBONATE 650 MG TAB PO SCH (08:30)
[2023-01-07] MEDS: METOPROLOL TARTRATE 25 MG TAB PO SCH (08:31)
[2023-01-07 08:47] VITALS: BP 112/74; PULSE 99; RESP 22; TEMP 98.1; O2SAT 100
[2023-01-07 11:57] VITALS: BP 118/78; PULSE 85; RESP 22; TEMP 98.1; O2SAT 100
[2023-01-07 16:00] VITALS: BP 110/67; PULSE 99; RESP 21; TEMP 98.9; O2SAT 100
[2023-01-07] MEDS ORDERED: MAGNESIUM SULFATE 2GM/50ML 50 ML IV ONE (16:45)
== END 2023-01-07 16:40 | disposition short-term general hospital (02) | DRG 668 ==
LOC: ER 18:04 → ERHOLD 19:31 → MED/SURG2 22:02
PROVIDERS: ADMIT Internal Medicine; ATTEND Internal Medicine
PROC: 0T9430Z Drainage of Left Kidney Pelvis with Drainage Device, Percutaneous Approach (ICD-10-PCS; principal; 2022-12-25)
PROC: 0T9330Z Drainage of Right Kidney Pelvis with Drainage Device, Percutaneous Approach (ICD-10-PCS; 2022-12-25)
PROC: 0TBB8ZX Excision of Bladder, Via Natural or Artificial Opening Endoscopic, Diagnostic (ICD-10-PCS; 2023-01-01)
DX: C67.9 Malignant neoplasm of bladder, unspecified (principal); I50.43 Acute on chronic combined systolic (congestive) and diastolic (congestive) heart failure; N18.6 End stage renal disease; N17.9 Acute kidney failure, unspecified; I13.2 Hypertensive heart and chronic kidney disease with heart failure and with stage 5 chronic kidney disease, or end stage renal disease; L03.115 Cellulitis of right lower limb; J81.1 Chronic pulmonary edema; E87.20 Acidosis, unspecified; N13.8 Other obstructive and reflux uropathy; N39.0 Urinary tract infection, site not specified; N13.30 Unspecified hydronephrosis; E87.5 Hyperkalemia; E66.01 Morbid (severe) obesity due to excess calories; Z68.35 Body mass index [BMI] 35.0-35.9, adult; D63.1 Anemia in chronic kidney disease; R80.8 Other proteinuria; N76.0 Acute vaginitis; Z20.822 Contact with and (suspected) exposure to COVID-19; Z87.891 Personal history of nicotine dependence
CPT/HCPCS: 0223U; 36415; 50432; 71045; 71250; 72195; 74176; 74420; 74470; 76942; 80048; 80053; 80307; 81001; 81050; 82550; 82553; 82570; 82607; 82948; 83036; 83690; 83735; 83880; 84100; 84156; 84165; 84166; 84443; 84484; 85025; 85379; 85610; 87086; 88304; 88305; 88307; 88342; 93005; 93306; 93970; 94760; 94799; 99152; 99153; 99252; 99284; C1758; C1769; J0612; J0696; J1100; J1170; J1644; J1940; J2001; J2250; J2270; J2405; J2543; J2550; J3475; J3480; J7030; J7040; J7050; J7799; Q0162; Q9967